=== PATIENT | female | born 1970 | race Caucasian/White ===

== ENCOUNTER 2018-12-21 16:46 | Emergency (ER) | payer OTHER ==
[~2018-12-21] VITALS: Ht 167.6 cm; Wt 87.4 kg
--- NOTE | 2018-12-21 17:26 | NUR ---
Pt ambulates to room with steady gait and balance.
[2018-12-21] MEDS ORDERED: DESO1TAB33 PO (17:37)
--- NOTE | 2018-12-21 17:43 | NUR ---
First contact with pt. Pt states, "I have had swelling in my left leg and foot starting in October. I went to urgent care and they got me an appointment with radiology today. I went to radiology and they said there was a blood clot in my leg and to go to the ER. I don't smoke, I never have, and I am on low dose control." Pt denies long car ride or air travel near time that swelling began to now. Pt denies trauma. Pt denies chest pain or shortness of breath. NADN. PT resting on gurney connected to all monitors. Call light within reach. All safety measures in place. No needs expressed at this time.
[2018-12-21 17:49] LABS: INTERNATIONAL NORMALIZED RATIO 0.95 (0.93-1.1); PROTHROMBIN TIME 10.1 Seconds (9.6-11.5)
[2018-12-21 17:51] LABS: BASOPHILS # (AUTO) 0.03 x10^3/uL (0-0.1); BASOPHILS % (AUTO) 0 % (0-1); EOSINOPHILS # (AUTO) 0.52 x10^3/uL (0-0.4); EOSINOPHILS % (AUTO) 7 % (1-7); LYMPHOCYTES # (AUTO) 1.81 x10^3/uL (1-3.4); LYMPHOCYTES % (AUTO) 23 % (22-44); MD NO; MEAN CORPUSCULAR HEMOGLOBIN 32.2 pg (27.0-34.8); MEAN CORPUSCULAR HGB CONC 34.4 g/dL (32.4-35.8); MEAN CORPUSCULAR VOLUME 93.6 fL (80-100); MEAN PLATELET VOLUME 9.4 fL (7.4-10.4); MONOCYTES # (AUTO) 0.67 x10^3/uL (0.2-0.8); MONOCYTES % (AUTO) 9 % (2-9); NEUTROPHILS # (AUTO) 4.79 x10^3/uL (1.8-6.8); NEUTROPHILS % (AUTO) 61 % (42-75); PLATELET COUNT 251 x10^3/uL (130-400); RED BLOOD COUNT 4.71 x10^6/uL (3.82-5.3); RED CELL DISTRIBUTION WIDTH 12.8 % (9.6-15.2)
[2018-12-21 17:58] LABS: ALBUMIN 3.8 g/dL (3.4-5.0); ANION GAP 8 mmol/L (5-15); CALCIUM 9.5 mg/dL (8.5-10.1); CHLORIDE 109 mmol/L (98-107); CREATININE 1.07 mg/dL (0.55-1.02)
[2018-12-21 19:00] VITALS: BP 157/90
== END 2018-12-21 19:02 | disposition home or self-care (01) ==
LOC: ED 18:55
DX: I82.412 Acute embolism and thrombosis of left femoral vein (principal); I82.432 Acute embolism and thrombosis of left popliteal vein
CPT/HCPCS: 36415; 80048; 82040; 85025; 85610; 99283

== ENCOUNTER → 2018-12-21 | Outpatient (CLI) | payer OTHER ==
[~2018-12-21] MED LIST: DESO1TAB33 PO
== END | disposition home or self-care (01) ==
LOC: CFH 15:50
PROVIDERS: ATTEND Nurse Practitioner Family
DX: I82.402 Acute embolism and thrombosis of unspecified deep veins of left lower extremity (principal)

== ENCOUNTER 2019-02-04 22:33 | Emergency (ER) | payer OTHER ==
[~2019-02-04] VITALS: Ht 167.6 cm; Wt 85.6 kg
[2019-02-04 22:37] VITALS: BP 153/97
[2019-02-04] MEDS ORDERED: RIVA20TA PO (22:45)
[2019-02-04] MEDS ORDERED: LIDOCAINE-MPF 1%, 5ML ONE ×2 (22:47→23:46)
--- NOTE | 2019-02-04 22:55 | NUR ---
PT SITTING UP IN [place], NAD NOTED. A&OX4. PT REPORTS MECHANICAL GLF TODAY WHILE PLAYING WITH DOG. DENIES DIZZINESS/WEAKNESS PRIOR TO FALL. LAC NOTED TO R DARLYN, BLEEDING CONTROLLED. +BLOOD THINNER FOR TX OF DVT SINCE NOVEMBER. +ETOH. PT AMBULATING STEADILY, SPEECH CLEAR. PT DENIES NAUSEA/NECK PAIN/LOC. +CURRENT TETNUS. Addendum: 02/04/19 at 7940 by JENNA Buffy FLOOD
--- NOTE | 2019-02-04 23:27 | NUR ---
TECH AT BS FOR IRRIGATION. SUTURE SET UP READY
[2019-02-04] MEDS ORDERED: LIDOCAINE 1%, 10ML INFIL ONE (23:30)
[2019-02-05] MEDS ORDERED: BACITRACIN ZINC OINT 500U/GM, 0.9 GM ONE (00:02)
--- NOTE | 2019-02-05 00:21 | NUR ---
DC EDUCATION PROVIDED, PT DEMONSTRATES UNDERSTANDING. PT AMBULATED STEADILY TO DC WITH RN
[2019-02-05] MEDS ORDERED: BACITRACIN ZINC OINT 500U/GM, 0.9 GM TP SCH (00:30)
== END 2019-02-05 00:23 | disposition home or self-care (01) ==
LOC: ED 02-05 00:20
DX: S01.81XA Laceration without foreign body of other part of head, initial encounter (principal); W01.0XXA Fall on same level from slipping, tripping and stumbling without subsequent striking against object, initial encounter; Y93.89 Activity, other specified; Y92.009 Unspecified place in unspecified non-institutional (private) residence as the place of occurrence of the external cause; Y99.8 Other external cause status
CPT/HCPCS: 12031; 70450; 99284